=== PATIENT | male | born 1985 | race Two or more races ===

== ENCOUNTER 2020-05-06 02:36 | Emergency (ER) | payer SELFPAY ==
[~2020-05-06] VITALS: Ht 175.3 cm; Wt 69.0 kg
[2020-05-06] MEDS ORDERED: HYDROCODONE/ACETAMINOPHEN 10/325MG TABLET PO ONE (03:15)
[2020-05-06] MEDS ORDERED: IBUP-2029 MT (04:06)
[2020-05-06 04:18] VITALS: BP 108/68
[2020-05-09] MEDS ORDERED: IBUP-2029 MT (17:13)
== END 2020-05-06 04:42 | disposition home or self-care (01) ==
LOC: ER 02:36
DX: M25.512 Pain in left shoulder (principal)
CPT/HCPCS: 71045; 73030; 99284